=== PATIENT | male | born 1950 | race Caucasian/White ===

== ENCOUNTER 2021-07-10 18:56 | Outpatient (REF) | payer MEDICARE, SELFPAY ==
[2021-07-10 14:53] LABS: Hemoglobin A1C 7.2 % (<5.7)
[2021-07-10 15:27] LABS: ALT 55 U/L (16-63); AST 26 U/L (15-37); Alkaline Phosphatase 124 U/L (46-116); Anion Gap 7.8 mmol/L (3-11); BUN 19 mg/dL (7-18); Bilirubin, Total 0.5 mg/dL (0.2-1.0); CO2 27.2 mmol/L (21.0-32.0); CREATININE 1.2 mg/dL (0.70-1.30); Calcium 9.2 mg/dL (8.5-10.1); Calculated LDL 76 mg/dL (<100); Chloride 106 mmol/L (98-107); Cholesterol 127 mg/dL (<200); Glucose 193 mg/dL (74-106); HDL Cholesterol 41 mg/dL (40-60); Potassium 5.4 mmol/L (3.5-5.1); Sodium 141 mmol/L (136-145); Total Protein 7.4 g/dL (6.4-8.2); Triglyceride 50 mg/dL (<150)
== END 2021-07-10 18:57 | disposition home or self-care (01) ==
LOC: NCHCN 18:56
PROVIDERS: Visit Provider Nurse Practitioner Family
DX: I10 Essential (primary) hypertension (principal); E11.9 Type 2 diabetes mellitus without complications
CPT/HCPCS: 80053; 80061; 83036

== ENCOUNTER 2022-01-22 17:43 | Outpatient (REF) | payer MEDICARE, SELFPAY ==
[2022-01-21 22:52] LABS: COMMENT (LAB VIEW ONLY) 142.65 mg/dL
[2022-01-22 19:49] LABS: PSA, Screening 34.5 ng/mL (<=4.5)
== END 2022-01-22 17:44 | disposition home or self-care (01) ==
LOC: NCHCN 17:43
PROVIDERS: Visit Provider Nurse Practitioner Family
DX: E11.9 Type 2 diabetes mellitus without complications (principal); Z12.5 Encounter for screening for malignant neoplasm of prostate
CPT/HCPCS: 84153; 82043; 82570

== ENCOUNTER 2022-08-26 15:39 | Outpatient (REF) | payer MEDICARE, SELFPAY ==
[2022-08-27 18:56] LABS: PSA, Diagnostic <0.1 ng/mL (<=4.5)
== END 2022-08-26 15:40 | disposition home or self-care (01) ==
LOC: LBN 15:39
PROVIDERS: Visit Provider Radiology Radiation Oncology
DX: C61 Malignant neoplasm of prostate (principal)
CPT/HCPCS: 84153; 84154

== ENCOUNTER 2022-11-24 17:04 | Outpatient (REF) | payer MEDICARE, SELFPAY ==
[2022-11-24 20:56] LABS: ALT 30 U/L (16-63); AST 22 U/L (15-37); Alkaline Phosphatase 99 U/L (46-116); Anion Gap 10.7 mmol/L (3-11); BUN 30 mg/dL (7-18); Bilirubin, Total 0.5 mg/dL (0.2-1.0); CO2 25.3 mmol/L (21.0-32.0); CREATININE 1.5 mg/dL (0.70-1.30); Calcium 9.4 mg/dL (8.5-10.1); Calculated LDL 71 mg/dL (<100); Chloride 103 mmol/L (98-107); Cholesterol 135 mg/dL (<200); Estimated GFR 49.77 (mL/min/1.73m2); Glucose 154 mg/dL (74-106); HDL Cholesterol 44 mg/dL (40-60); Potassium 5.2 mmol/L (3.5-5.1); Sodium 139 mmol/L (136-145); Total Protein 7.6 g/dL (6.4-8.2); Triglyceride 100 mg/dL (<150)
[2022-11-24 21:05] LABS: COMMENT (LAB VIEW ONLY) 180.03 mg/dL; Microalb ug/mg Crea 12.6 ug/mg Cr
[2022-11-25 18:28] LABS: PSA, Diagnostic <0.1 ng/mL (<=6.5)
== END 2022-11-24 17:05 | disposition home or self-care (01) ==
LOC: NCHCN 17:04
PROVIDERS: Visit Provider Nurse Practitioner Family
DX: E11.9 Type 2 diabetes mellitus without complications (principal); C61 Malignant neoplasm of prostate; Z95.1 Presence of aortocoronary bypass graft; I10 Essential (primary) hypertension
CPT/HCPCS: 80053; 80061; 82043; 82570; 84153

== ENCOUNTER 2023-05-04 08:10 | Outpatient (REF) | payer MEDICARE, SELFPAY ==
[2023-05-04 23:13] LABS: PSA, Diagnostic <0.1 ng/mL (<=6.5)
== END 2023-05-04 08:11 | disposition home or self-care (01) ==
LOC: LBN 08:10
PROVIDERS: Visit Provider Radiology Radiation Oncology
DX: C61 Malignant neoplasm of prostate (principal)
CPT/HCPCS: 84153

== ENCOUNTER 2023-05-10 16:58 | Outpatient (REF) | payer MEDICARE, SELFPAY ==
[2023-05-10 16:15] LABS: HCT 35.6 % (40.0-50.0); HGB 11.8 g/dL (13.5-17.5); MCH 28.6 pg (27.0-33.0); MCHC 33.1 % (32.0-36.0); MCV 86 fL (80-95); MPV 10.3 fL (8.0-11.0); Platelet Count 231 10^3/uL (130-400); RBC 4.13 10^6/uL (4.36-5.78); RDW 13.1 % (11.8-14.1); RDW-SD 40.6 fL; WBC 7.86 10^3/uL (4.4-10.8)
[2023-05-10 16:53] LABS: ALT 27 U/L (16-63); AST 18 U/L (15-37); Albumin 3.8 g/dL (3.4-5.0); Alkaline Phosphatase 110 U/L (46-116); Anion Gap 7.6 mmol/L (3-11); BUN 28 mg/dL (7-18); Bilirubin, Total 0.4 mg/dL (0.2-1.0); CO2 24.4 mmol/L (21.0-32.0); CREATININE 1.1 mg/dL (0.70-1.30); Calcium 9.6 mg/dL (8.5-10.1); Chloride 104 mmol/L (98-107); Estimated GFR 72.22 (mL/min/1.73m2); Glucose 190 mg/dL (74-106); Magnesium 1.6 mg/dL (1.8-2.4); Potassium 5.3 mmol/L (3.5-5.1); Sodium 136 mmol/L (136-145); TSH (W/Ref FT4) 2.92 uIU/mL (0.36-3.74); Total Protein 7.8 g/dL (6.4-8.2); Vitamin B12 298 pg/mL (193-986)
== END 2023-05-10 16:59 | disposition home or self-care (01) ==
LOC: NCHCN 16:58
PROVIDERS: Visit Provider Nurse Practitioner Family
DX: E11.3293 Type 2 diabetes mellitus with mild nonproliferative diabetic retinopathy without macular edema, bilateral (principal); I25.10 Atherosclerotic heart disease of native coronary artery without angina pectoris; R42 Dizziness and giddiness; Z95.2 Presence of prosthetic heart valve
CPT/HCPCS: 80053; 85027; 82607; 83735; 84443

== ENCOUNTER 2023-05-20 10:12 | Outpatient (REF) | payer MEDICARE, SELFPAY ==
[2023-05-20 14:57] LABS: HCT 38.2 % (40.0-50.0); HGB 12.2 g/dL (13.5-17.5); MCH 27.9 pg (27.0-33.0); MCHC 31.9 % (32.0-36.0); MCV 87 fL (80-95); MPV 9.4 fL (8.0-11.0); Platelet Count 251 10^3/uL (130-400); RBC 4.38 10^6/uL (4.36-5.78); RDW 13.5 % (11.8-14.1); RDW-SD 42.8 fL; Reticulocyte 2.1 % (0.5-2.4); WBC 7.37 10^3/uL (4.4-10.8)
[2023-05-20 15:45] LABS: Iron 67 ug/dL (65-175)
[2023-05-20 16:00] LABS: Anion Gap 11.1 mmol/L (3-11); BUN 27 mg/dL (7-18); CO2 23.9 mmol/L (21.0-32.0); CREATININE 1.2 mg/dL (0.70-1.30); Calcium 9.4 mg/dL (8.5-10.1); Chloride 106 mmol/L (98-107); Estimated GFR 65.06 (mL/min/1.73m2); Ferritin 446 ng/mL (26-388); Folate 11.1 ng/mL (8.6-20.0); Glucose 209 mg/dL (74-106); Magnesium 1.9 mg/dL (1.8-2.4); Potassium 4.3 mmol/L (3.5-5.1); Sodium 141 mmol/L (136-145)
[2023-05-21 09:00] LABS: Transferrin 235 mg/dL (201-352)
== END 2023-05-20 10:13 | disposition home or self-care (01) ==
LOC: NCHCN 10:12
PROVIDERS: Visit Provider Nurse Practitioner Family
DX: D64.9 Anemia, unspecified (principal)
CPT/HCPCS: 80048; 85027; 85045; 82728; 82746; 83540; 83735; 84466

== ENCOUNTER 2023-06-24 12:55 | Outpatient (REF) | payer MEDICARE, SELFPAY ==
--- OUTSIDE RECORDS SUMMARY | 2023-06-24 13:00 | XMS_ITS | CCD ---
Author Name Unknown Address [address] [place] [address] [phone] Organization Unknown Address [address] [place] [address] [phone] Care Team Providers Care Laundry Sorter Name Role Phone JENNA BOB Attending Physician [phone] JENNA BOB Rounding (Secondary) Physic salvador [phone] Vital Signs Unknown or Not Available. Allergies Allergy Code Allergy Type Reaction Status No Known Drug Allergies 0 No known drug allergies Active Procedures Unknown or Not Available. History of Immunizations Immunization Code Date Tdap 115 12/26/2022 Problems Unknown or Not Available. Results Unknown or Not Available. Active Medications Medication Code Dose Units Frequency Route Modificatio n Start Date/Time Finasteride 5MG Oral Tablet [id number] 1 TABLET DAILY ORAL 05/15/20 23 23:47 Prescription Detail TAKE 1 TABLET ORAL DAILY Medications Administered During Visit Unknown or Not Available. Encounters Encounter Diagnosis Diagnosis Code Start Date Postprocedural state finding [id number] Social History Smoking Status Code Start Date End Date Former smoker [id number] 10/24/1989 Patient Decision Aids Unknown or Not Available. Discharge Instructions You were admitted to [facility] on 04/13/2022 11:41 with a principal diagnosis of Other specified postprocedural states You were discharged from [facility] on 04/13/2022 00:00 Should you have any questions prior to discharge, please contact a member of your healthcare team. If you have left the hospital and have any questions, please contact your primary care physician. Chief Complaint and Reason For Visit Unknown or Not Available. Function Status Unknown or Not Available. Plan of Care Unknown or Not Available. Referral/Transition of Care Unknown or Not Available.
--- OUTSIDE RECORDS SUMMARY | 2023-06-24 13:00 | XMS_ITS | CCD ---
Author Name Unknown Address [address] [place] [address] [phone] Organization Unknown Address [address] [place] [address] [phone] Care Team Providers Care Needle Loom Operator Name Role Phone JEANNE ALDRIDGE Attending Physician [phone] Vital Signs Unknown or Not Available. Allergies Allergy Code Allergy Type Reaction Status No Known Drug Allergies 0 No known drug allergies Active Procedures Unknown or Not Available. History of Immunizations Immunization Code Date Tdap 115 12/26/2022 Problems Unknown or Not Available. Results Unknown or Not Available. Active Medications Medication Code Dose Units Frequency Route Modificatio n Start Date/Time Finasteride 5MG Oral Tablet [id number] 1 TABLET DAILY ORAL 05/15/20 23 23:47 Prescription Detail TAKE 1 TABLET ORAL DAILY Medications Administered During Visit Unknown or Not Available. Encounters Encounter Diagnosis Diagnosis Code Start Date Encounter for other specified aftercare Z5189 04/14/2022 Social History Smoking Status Code Start Date End Date Former smoker [id number] 10/24/1989 Patient Decision Aids Unknown or Not Available. Discharge Instructions You were admitted to [facility] on 04/14/2022 09:30 with a principal diagnosis of Encounter for other specified aftercare You were discharged from [facility] on 04/14/2022 08:51 Should you have any questions prior to [...]
--- OUTSIDE RECORDS SUMMARY | 2023-06-24 13:00 | XMS_ITS | CCD ---
Author Name Unknown Address [address] [place] [address] [phone] Organization Unknown Address [address] [place] [address] [phone] Care Team Providers Care Sap Plant Maintenance Consultant Name Role Phone GENO BAKER Attending Physician [phone] Vital Signs Unknown or Not Available. Allergies Allergy Code Allergy Type Reaction Status No Known Drug Allergies 0 No known drug allergies Active Procedures Unknown or Not Available. History of Immunizations Immunization Code Date Tdap 115 12/26/2022 Problems Unknown or Not Available. Results Unknown or Not Available. Active Medications Medications Administered During Visit Unknown or Not Available. Encounters Encounter Diagnosis Diagnosis Code Start Date Encounter for other specified prophylactic measu res Z298 02/23/2022 Social History Smoking Status Code Start Date End Date Former smoker [id number] 10/24/1989 Patient Decision Aids Unknown or Not Available. Discharge Instructions You were admitted to [facility] on 02/23/2022 18:59 with a principal diagnosis of Encounter for other specified prophylactic measures You were discharged from [facility] on 02/23/2022 18:59 Should you have any questions prior to [...]
--- OUTSIDE RECORDS SUMMARY | 2023-06-24 13:00 | XMS_ITS | CCD ---
Author Name Unknown Address [address] [place] [address] [id number] Organization Unknown Address [address] [place] [address] [phone] Care Team Providers Care Salesperson Hosiery Name Role Phone COLIN FRAUSTO Attending Physician [phone] ARI COPE Er Physician 3 [phone] Vital Signs Vital Sign Value Unit Date/Time Recent/Initial ? BMI (Body Mass Index) 29.21 kg/m^2 01/01/2023 16: 51 Initial VS Weight Measured 240 lbs 01/01/2023 16:51 Ini tial VS Height 76 in 01/01/2023 16:51 Initial VS BSA (Body Surface Area) 2.42 m^2 01/01/2023 1 6:51 Initial VS BP Systolic 100 mmHg 01/01/2023 16:51 Initial VS BP Diastolic 64 mmHg 01/01/2023 16:51 Initia l VS O2 % BldC Oximetry 100 % 01/01/2023 16:51 Initial VS Body Temperature 36.1 degrees 01/01/2023 16:51 In itial VS Allergies Allergy Code Allergy Type Reaction Status No Known Drug Allergies 0 No known drug allergies Active Procedures Unknown or Not Available. History of Immunizations Immunization Code Date Tdap 115 12/26/2022 Problems Unknown or Not Available. Results Unknown or Not Available. Active Medications Unknown or Not Available. Medications Administered During Visit Unknown or Not Available. Encounters Encounter Diagnosis Diagnosis Code Start Date Laceration without foreign b betsy of right ear, subsequent encounter [id number] 01/01/2023 Social History Smoking Status Code Start Date End Date Former smoker [id number] 10/24/1989 Patient Decision Aids Unknown or Not Available. Discharge Instructions You were admitted to [facility] on 01/01/2023 16:39 with a principal diagnosis of Laceration without foreign body of right ear, subsequent encounter You were discharged from [facility] on 01/01/2023 17:22 Should you have any questions prior to discharge, please contact a member of your healthcare team. If you have left the hospital and have any questions, please contact your primary care physician. Chief Complaint and Reason For Visit Chief Complaint Date of Onset STITCHE REMOVAL 01/04/2023 Function Status Unknown or Not Available. Plan of Care Unknown or Not Available. Referral/Transition of Care Unknown or Not Available.
--- OUTSIDE RECORDS SUMMARY | 2023-06-24 13:00 | XMS_ITS | CCD ---
Author Name Unknown Address [address] [place] [address] [id number] Organization Unknown Address [address] [place] [address] [phone] Care Team Providers Care Bookmaker'S Clerk Name Role Phone KARLI GRAY Attending Physician [phone] KARLI GRAY Rounding (Secondary) Physicia n [phone] Vital Signs Unknown or Not Available. Allergies Allergy Code Allergy Type Reaction Status No Known Drug Allergies 0 No known drug allergies Active Procedures Unknown or Not Available. History of Immunizations Immunization Code Date Tdap 115 12/26/2022 Problems Unknown or Not Available. Results Unknown or Not Available. Active Medications Medication Code Dose Units Frequency Route Modificatio n Start Date/Time Finasteride 5MG Oral Tablet 499810 1 TABLET DAILY ORAL 05/15/20 23 23:47 Prescription Detail TAKE 1 TABLET ORAL DAILY Medications Administered During Visit Unknown or Not Available. Encounters Encounter Diagnosis Diagnosis Code Start Date Plantar fascial fibromatosis [id number] 11/2022 Social History Smoking Status Code Start Date End Date Former smoker [id number] 10/24/1989 Patient Decision Aids Unknown or Not Available. Discharge Instructions You were admitted to [facility] on 03/30/2023 14:46 with a principal diagnosis of Plantar fascial fibromatosis You were discharged from [facility] on 03/30/2023 00:00 Should you have any questions prior [...]
--- OUTSIDE RECORDS SUMMARY | 2023-06-24 13:00 | XMS_ITS | CCD ---
Author Name Unknown Address [address] [place] [address] [phone] Organization Unknown Address [address] [place] [address] [phone] Care Team Providers Care Appraisal Specialist Name Role Phone JEANNE ALDRIDGE Attending Physician [phone] Vital Signs Unknown or Not Available. Allergies Allergy Code Allergy Type Reaction Status No Known Drug Allergies 0 No known drug allergies Active Procedures Unknown or Not Available. History of Immunizations Immunization Code Date Tdap 115 12/26/2022 Problems Unknown or Not Available. Results Unknown or Not Available. Active Medications Medication Code Dose Units Frequency Route Modificatio n Start Date/Time Finasteride 5MG Oral Tablet 334607 1 TABLET DAILY ORAL 05/15/20 23:47 Prescription Detail TAKE 1 TABLET ORAL DAILY Medications Administered During Visit Unknown or Not Available. Encounters Encounter Diagnosis Diagnosis Code Start Date Encounter for other specified aftercare Z5189 07/30/2022 Social History Smoking Status Code Start Date End Date Former smoker [id number] 10/24/1989 Patient Decision Aids Unknown or Not Available. Discharge Instructions You were admitted to [facility] on 07/30/2022 15:02 with a principal diagnosis of Encounter for other specified aftercare You were discharged from [facility] on 07/30/2022 11:44 Should you have any questions prior to [...]
--- OUTSIDE RECORDS SUMMARY | 2023-06-24 13:00 | XMS_ITS | Patient Health Record ---
Author Name Unknown Organization [facility] Address [address] [place] [address] Care Team Providers Care Interior Design Professor Name Role Phone Mason Kiran Primary Care Provider Sil Prescott Unavailable [phone] ALLERGIES Allergen (clinical drug ingredient) Drug/Non Drug Allergy documented on EMR Reaction Allergy Type Onset Date Status atorvastatin Atorvastatin Unknown Drug Allergy 02/02/2022 Active REASON FOR REFERRAL No Information MEDICATIONS Medication SIG (Take, Route, Frequency, Duration) Notes Start Date End Date Status Cilostazol 100 MG 1 tablet 30 minutes before or 2 hours after breakfast and dinner Orally Twice a day for 30 day(s) Active Metoprolol Tartrate 50 MG 1 tablet with food Orally Twice a day for 30 day(s) Active Lisinopril 10 MG 1 tablet Orally Once a day for 30 day(s) Active Aspir-81 Active metFORMIN HCl 500 MG 1 tablet with a jane l Orally Once a day for 30 day(s) Active Jardiance 25 MG 1 tablet Orally Once a day for 30 day(s) Active Rosuvastatin Calcium 10 MG 1 tablet Oral ly Once a day for 30 day(s) Active Flomax 0.4 MG 1 capsule Orally Onc e a day for 30 day(s) Active IMMUNIZATIONS Vaccine Route Administration Date Status Comme nts Covid19 Unknown 10/19/2020 Administered Covid19 Unknown 11/16/2020 Administered Covid19 Unknown 07/10/2021 Administered Influenza, high dose seasonal Unknown 07/10/2021 Admini stered Pneumococcal polysaccharide PPV23 Unknown 04/27/2019 Ad ministered SOCIAL HISTORY Tobacco Use: Social History Observation Description Date Details (start date - stop date) Former Smoker NA - NA Sex Assigned At : Social History Observation Description Sex Assigned At Unknown Tobacco Use/Smoking: Question Answer Notes Are you a former smoker PROBLEMS Problem Type ICD Code Onset Dates Problem Status W/U Status Risk SNOMED Code Notes Problem Malignant neoplasm o f prostate (C61) Active confirmed Malignant jasmyne or of prostate ([id number]) Problem Type 2 diabetes mellitus without complications (E11.9) Active confirmed Type 2 diabetes mellitus without complication (342416258) Problem Essential (primary) hypertension (I10) Active confirmed Benign hy pertension (74139163) Problem Familial hypercholesterolemia (E78.01) Active confirmed Familial hypercholesterolemia (761011317) Problem Benign prostatic hyperplasia with lower urinary tract symptoms (N40.1) Active confirmed Lower urina ry tract symptoms due to benign prostatic hypertrophy (74662166124725) Problem Elevated prostate specific antigen [PSA] (R97.20) Active confirmed Raised prosta te specific antigen (682834822) VITAL SIGNS Height 74 in 06/01/2023 Weight 250 lbs 06/01/2023 BMI 32.09 kg/m2 06/01/2023 Encounters Encounter Location Date Provider Diagnosis [facility] [address] [address] 09/16/2022 [facility] [address] [address] 05/27/2023 [facility] [address] [address] 06/01/2023 Sil [facility] Malignant neoplasm o f prostate C61 and Benign prostatic hyperplasia with lower urinary tract symptoms N40.1 [facility] [address] [address] 06/01/2023 Sil [facility] ASSESSMENTS Encounter Date Diagnosis Assessment Notes Treatment Notes Treatment Clinical Notes 06/01/2023 Malignant neoplasm of prostate (ICD-10 - C61) 06/01/2023 Benign prostatic hyperplasia with lower urinary tract symptoms (ICD-10 - N40.1) PLAN OF TREATMENT Next Appt Details Provider Name:Sil morales, 07/15/2023 11:00:00 AM, [address] [place] [address], [id number], Insurance Providers Payer Name Payer Address Payer Phone Subscriber Number Group Number Insured Name Patient Relationship to Insured Coverage Start Date Coverage End Date Medicare of [place] - J14 [address] [place] [phone] [id number] PATTY ROBERTS Self - patient is the insured [facility] Medicare Supplement/ Fixed Indemnity [address] [place] [address] [id number] PATTY ROBERTS Self - patient is the insured MEDICAL (GENERAL) HISTORY Medical History History ICD Code Dupuytren's Contracture CAD Peripheral Vascular Disease Aortic Stenosis Hyperkalemia R Lower Lobe Pulmonary Nodule Diverticulitis radha 8 prostate cancer diagnosed 03/14 22 Surgical History Surgery Date(Month/Year) Coronary Artery Bypass Prostate Biopsy - [place] 8 02/2022
--- OUTSIDE RECORDS SUMMARY | 2023-06-24 13:00 | XMS_ITS | CCD ---
Author Name Unknown Address [address] [place] [address] [id number] Organization Unknown Address [address] [place] [address] [phone] Care Team Providers Care Bindery Assistant Name Role Phone GABRIELLA MCGINNIS Attending Physician [phone] GABRIELLA MCGINNIS Er Physician 3 [phone] CHANO Lamb Registered Nurse [phone] JOAN Samaniego Registered Nurse [phone] Vital Signs Vital Sign Value Unit Date/Time Recent/Initial ? BMI (Body Mass Index) 28.85 kg/m^2 12/26/2022 14: 33 Initial VS Weight Measured 237 lbs 12/26/2022 14:33 Ini tial VS Height 76 in 12/26/2022 14:33 Initial VS BSA (Body Surface Area) 2.4 m^2 12/26/2022 1 4:33 Initial VS BP Systolic 128 mmHg 12/26/2022 14:33 Initial VS BP Diastolic 55 mmHg 12/26/2022 14:33 Initia l VS Respiratory Rate 18 bpm 12/26/2022 14:33 In itial VS Heart Rate 78 bpm 12/26/2022 14:33 Initial VS O2 % BldC Oximetry 98 % 12/26/2022 14:33 Initial VS Body Temperature 36.4 degrees 12/26/2022 14:33 In itial VS BP Systolic 150 mmHg 12/26/2022 18:40 Most Re cent VS BP Diastolic 78 mmHg 12/26/2022 18:40 Most R ecent VS Respiratory Rate 16 bpm 12/26/2022 18:[address] Recent VS Heart Rate 98 bpm 12/26/2022 18:40 Most Rec ent VS O2 % BldC Oximetry 99 % 12/26/2022 18:40 Most Recent VS Body Temperature 36.3 degrees 12/26/2022 18:[address] Recent VS Allergies Allergy Code Allergy Type Reaction Status No Known Drug Allergies 0 No known drug allergies Active Procedures Unknown or Not Available. History of Immunizations Immunization Code Date Tdap 115 12/26/2022 Problems Unknown or Not Available. Results Unknown or Not Available. Active Medications Medications Administered During Visit Medication Dose Units Frequency Route Date/Time of Last Dose TETANUS/DIPHT/PERTUS SYR:0.5ML(BOOSTRIX) 0.5 ML X1 IM 12/27/19 23 18:15 Encounters Encounter Diagnosis Diagnosis Code Start Date Laceration without foreign b betsy of right ear, initial encounter [id number] 12/26/2022 Social History Smoking Status Code Start Date End Date Former smoker [id number] 10/24/1989 Patient Decision Aids Unknown or Not Available. Discharge Instructions You were admitted to [facility] on 12/26/2022 14:08 with a principal diagnosis of Laceration without foreign body of right ear, initial encounter You were discharged from [facility] on 12/26/2022 18:51 Should you have any questions prior to discharge, please contact a member of your healthcare team. If you have left the hospital and have any questions, please contact your primary care physician. Chief Complaint and Reason For Visit Chief Complaint Date of Onset RIGHT EAR LACERATION Function Status Unknown or Not Available. Plan of Care Unknown or Not Available. Referral/Transition of Care Unknown or Not Available.
--- OUTSIDE RECORDS SUMMARY | 2023-06-24 13:01 | XMS_ITS | CCD ---
Author Name Unknown Address [address] [place] [address] [phone] Organization Unknown Address [address] [place] [address] [phone] Care Team Providers Care Automotive Service Management Teacher Name Role Phone HAYDEE MCDONALD Attending Physician [phone] Vital Signs Unknown or Not Available. Allergies Allergy Code Allergy Type Reaction Status No Known Drug Allergies 0 No known drug allergies Active Procedures Unknown or Not Available. History of Immunizations Immunization Code Date Tdap 115 12/26/2022 Problems Unknown or Not Available. Results Unknown or Not Available. Active Medications Medication Code Dose Units Frequency Route Modificatio n Start Date/Time Finasteride 5MG Oral Tablet 422725 1 TABLET DAILY ORAL 05/15/20 23 23:47 Prescription Detail TAKE 1 TABLET ORAL DAILY Medications Administered During Visit Unknown or Not Available. Encounters Unknown or Not Available. Social History Smoking Status Code Start Date End Date Former smoker 1855460 10/24/1989 Patient Decision Aids Unknown or Not Available. Discharge Instructions You were admitted to [facility] on 02/23/2022 14:16 You were discharged from [facility] on 02/23/2022 14:16 Should you have any questions prior to discharge, please contact a member of your healthcare team. If you have left the hospital and have any questions, please contact your primary care physician. Chief Complaint and Reason For Visit Chief Complaint Date of Onset ELEVATED PSA Function Status Unknown or Not Available. Plan of Care Unknown or Not Available. Referral/Transition of Care Unknown or Not Available.
--- OUTSIDE RECORDS SUMMARY | 2023-06-24 13:01 | XMS_ITS | CCD ---
Author Name Unknown Address [address] [place] [address] [phone] Organization Unknown Address [address] [place] [address] [phone] Care Team Providers Care Neon Sign Erector Name Role Phone JENNA BOB Attending Physician [phone] JENNA BOB Rounding (Secondary) Physic salvador [phone] Vital Signs Unknown or Not Available. Allergies Allergy Code Allergy Type Reaction Status No Known Drug Allergies 0 No known drug allergies Active Procedures Unknown or Not Available. History of Immunizations Immunization Code Date Tdap 115 12/26/2022 Problems Unknown or Not Available. Results Unknown or Not Available. Active Medications Medication Code Dose Units Frequency Route Modificatio n Start Date/Time Finasteride 5MG Oral Tablet 011800 1 TABLET DAILY ORAL 05/15/20 23 23:47 Prescription Detail TAKE 1 TABLET ORAL DAILY Medications Administered During Visit Unknown or Not Available. Encounters Encounter Diagnosis Diagnosis Code Start Date Follow-up orthopedic assessment [id number] 01/13/2022 Social History Smoking Status Code Start Date End Date Former smoker 0642962 10/24/1989 Patient Decision Aids Unknown or Not Available. Discharge Instructions You were admitted to [facility] on 01/13/2022 11:18 with a principal diagnosis of Encounter for other orthopedic aftercare You were discharged from [facility] on 01/13/2022 00:00 Should you have any questions prior [...]
--- OUTSIDE RECORDS SUMMARY | 2023-06-24 13:01 | XMS_ITS | CCD ---
Author Name Unknown Address [address] [place] [address] [phone] Organization Unknown Address [address] [place] [address] [phone] Care Team Providers Care Production Reproduction Manager Name Role Phone JENNA BOB Attending Physician [phone] JENNA BOB Rounding (Secondary) Physic salvador [phone] Vital Signs Unknown or Not Available. Allergies Allergy Code Allergy Type Reaction Status No Known Drug Allergies 0 No known drug allergies Active Procedures Unknown or Not Available. History of Immunizations Immunization Code Date Tdap 115 12/26/2022 Problems Unknown or Not Available. Results Unknown or Not Available. Active Medications Medication Code Dose Units Frequency Route Modificatio n Start Date/Time Finasteride 5MG Oral Tablet 758940 1 TABLET DAILY ORAL 05/15/20 23 23:47 Prescription Detail TAKE 1 TABLET ORAL DAILY Medications Administered During Visit Unknown or Not Available. Encounters Encounter Diagnosis Diagnosis Code Start Date Malignant neoplasm of prostate C61 0 02/23/2022 Social History Smoking Status Code Start Date End Date Former smoker [id number] 10/24/1989 Patient Decision Aids Unknown or Not Available. Discharge Instructions You were admitted to [facility] on 02/23/2022 00:00 with a principal diagnosis of Malignant neoplasm of prostate You were discharged from [facility] on 02/23/2022 00:00 Should you have any questions prior [...]
--- OUTSIDE RECORDS SUMMARY | 2023-06-24 13:01 | XMS_ITS | CCD ---
Author Name Unknown Address [address] [place] [address] [phone] Organization Unknown Address [address] [place] [address] [phone] Care Team Providers Care Laundry Routeman Name Role Phone HAYDEE MCDONALD Attending Physician [phone] Vital Signs Unknown or Not Available. Allergies Allergy Code Allergy Type Reaction Status No Known Drug Allergies 0 No known drug allergies Active Procedures Unknown or Not Available. History of Immunizations Immunization Code Date Tdap 115 12/26/2022 Problems Unknown or Not Available. Results PSA DIAG PROSTATE SPECIFIC A NTIGEN * - Collect Date/Time: 02/04/2022 16:34 Test Name Code Test Result Test Units Test Ref Rang e PSA 2857-1 41.74 ng/mL L=0.00 H=4.50 Active Medications Medication Code Dose Units Frequency Route Modificatio n Start Date/Time Finasteride 5MG Oral Tablet 270531 1 TABLET DAILY ORAL 05/15/20 23 23:47 Prescription Detail TAKE 1 TABLET ORAL DAILY Medications Administered During Visit Unknown or Not Available. Encounters Encounter Diagnosis Diagnosis Code Start Date Raised prostate specific antigen [id number] 02/04/2022 Social History Smoking Status Code Start Date End Date Former smoker [id number] 10/24/1989 Patient Decision Aids Unknown or Not Available. Discharge Instructions You were admitted to [facility] on 02/04/2022 16:28 with a principal diagnosis of Elevated prostate specific antigen [PSA] You had the following tests done:PSA DIAG PROSTATE SPECIFIC ANTIGEN * You were discharged from [facility] on 02/04/2022 16:28 Should you have any questions prior to [...]
--- OUTSIDE RECORDS SUMMARY | 2023-06-24 13:01 | XMS_ITS | CCD ---
Author Name Unknown Address [address] [place] [address] [phone] Organization Unknown Address [address] [place] [address] [phone] Care Team Providers Care Stop Attacher Name Role Phone JENNA BOB Attending Physician [phone] Vital Signs Unknown or Not Available. Allergies Allergy Code Allergy Type Reaction Status No Known Drug Allergies 0 No known drug allergies Active Procedures Unknown or Not Available. History of Immunizations Immunization Code Date Tdap 115 12/26/2022 Problems Unknown or Not Available. Results Unknown or Not Available. Active Medications Medication Code Dose Units Frequency Route Modificatio n Start Date/Time Finasteride 5MG Oral Tablet 790912 1 TABLET DAILY ORAL 05/15/20 23:47 Prescription Detail TAKE 1 TABLET ORAL DAILY Medications Administered During Visit Unknown or Not Available. Encounters Encounter Diagnosis Diagnosis Code Start Date Canceled operative procedure [id number] 02/2022 Social History Smoking Status Code Start Date End Date Former smoker [id number] 10/24/1989 Patient Decision Aids Unknown or Not Available. Discharge Instructions You were admitted to [facility] on 01/30/2022 16:42 with a principal diagnosis of Procedure and treatment not carried out, unspecified reason You were discharged from [facility] on 01/30/2022 16:42 Should you have any questions prior to [...]
--- OUTSIDE RECORDS SUMMARY | 2023-06-24 13:01 | XMS_ITS | CCD ---
Author Name Unknown Address [address] [place] [address] [phone] Organization Unknown Address [address] [place] [address] [phone] Care Team Providers Care Delimer Name Role Phone JENNA BOB Attending Physician [phone] Vital Signs Unknown or Not Available. Allergies Allergy Code Allergy Type Reaction Status No Known Drug Allergies 0 No known drug allergies Active Procedures Unknown or Not Available. History of Immunizations Immunization Code Date Tdap 115 12/26/2022 Problems Unknown or Not Available. Results [facility]* - Curt ect Date/Time: 12/27/2021 10:33 Test Name Code Test Result Test Units Test Ref Rang e Tier- 02837-9 PRE-OP N/A SARS COV2 RNA: 01895-2 NEGATIVE N/A REFERENCE RANGE: NEGAT Active Medications Medication Code Dose Units Frequency Route Modificatio n Start Date/Time Finasteride 5MG Oral Tablet 379983 1 TABLET DAILY ORAL 05/15/20 23 23:47 Prescription Detail TAKE 1 TABLET ORAL DAILY Medications Administered During Visit Unknown or Not Available. Encounters Encounter Diagnosis Diagnosis Code Start Date Pre-surgery testing [id number] 12/27/2021 Social History Smoking Status Code Start Date End Date Former smoker [id number] 10/24/1989 Patient Decision Aids Unknown or Not Available. Discharge Instructions You were admitted to [facility] on 12/27/2021 21:02 with a principal diagnosis of Encounter for preprocedural laboratory examination You had the following tests done:DESTINEY HOFFMANN XIANGGABINO* You were discharged from [facility] on 12/27/2021 21:02 Should you have any questions prior to [...]
--- OUTSIDE RECORDS SUMMARY | 2023-06-24 13:01 | XMS_ITS | CCD ---
Author Name Unknown Address [address] [place] [address] [phone] Organization Unknown Address [address] [place] [address] [phone] Care Team Providers Care Screen Machine Operator Name Role Phone JENNA BOB Attending Physician [phone] JENNA BOB Rounding (Secondary) Physic salvador [phone] Vital Signs Unknown or Not Available. Allergies Allergy Code Allergy Type Reaction Status No Known Drug Allergies 0 No known drug allergies Active Procedures Unknown or Not Available. History of Immunizations Immunization Code Date Tdap 115 12/26/2022 Problems Unknown or Not Available. Results Unknown or Not Available. Active Medications Medication Code Dose Units Frequency Route Modificatio n Start Date/Time Finasteride 5MG Oral Tablet 556590 1 TABLET DAILY ORAL 05/15/20 23 23:47 Prescription Detail TAKE 1 TABLET ORAL DAILY Medications Administered During Visit Unknown or Not Available. Encounters Encounter Diagnosis Diagnosis Code Start Date Removal of suture 53250176 01/07/2022 Social History Smoking Status Code Start Date End Date Former smoker [id number] 10/24/1989 Patient Decision Aids Unknown or Not Available. Discharge Instructions You were admitted to [facility] on 01/07/2022 14:42 with a principal diagnosis of Encounter for removal of sutures You were discharged from [facility] on 01/07/2022 00:00 Should you have any questions prior [...]
--- OUTSIDE RECORDS SUMMARY | 2023-06-24 13:02 | XMS_ITS | CCD ---
Author Name Unknown Address [address] [place] [address] [id number] Organization Unknown Address [address] [place] [address] [phone] Care Team Providers Care Camera Person Name Role Phone JENNA BOB Attending Physician [phone] Vital Signs Unknown or Not Available. Allergies Allergy Code Allergy Type Reaction Status No Known Drug Allergies 0 No known drug allergies Active Procedures Unknown or Not Available. History of Immunizations Immunization Code Date Tdap 115 12/26/2022 Problems Unknown or Not Available. Results Unknown or Not Available. Active Medications Medication Code Dose Units Frequency Route Modificatio n Start Date/Time Finasteride 5MG Oral Tablet 894934 1 TABLET DAILY ORAL 05/15/20 23:47 Prescription Detail TAKE 1 TABLET ORAL DAILY Medications Administered During Visit Unknown or Not Available. Encounters Encounter Diagnosis Diagnosis Code Start Date Encounter for other orthopedic aftercare Z4789 01/01/2022 Social History Smoking Status Code Start Date End Date Former smoker [id number] 10/24/1989 Patient Decision Aids Unknown or Not Available. Discharge Instructions You were admitted to [facility] on 01/01/2022 09:16 with a principal diagnosis of Encounter for other orthopedic aftercare You were discharged from [facility] on 04/13/2022 08:58 Should you have any questions prior to [...]
--- OUTSIDE RECORDS SUMMARY | 2023-06-24 13:02 | XMS_ITS | CCD ---
Author Name Unknown Address [address] [place] [address] [phone] Organization Unknown Address [address] [place] [address] [phone] Care Team Providers Care Surveying Or Spatial Science Technician Name Role Phone SHAWANDA POLANCO Attending Physician [phone] Vital Signs Unknown or Not Available. Allergies Allergy Code Allergy Type Reaction Status No Known Drug Allergies 0 No known drug allergies Active Procedures Procedure Code Procedure Type Date Open Treatment, Metacarpopha langeal Dislocation, Single, w/wo Int Fixation 26760 CPT 12/21/2021 History of Immunizations Immunization Code Date Tdap 115 12/26/2022 Problems Problem Code Start Date Resolved Date Status Diabetes 2 68159568 12/21/2021 Resolved History of aortic valve replacement 1840632805353 12/22/2021 Resolved Coronary arteriosclerosis 79079475 12/22/2021 Resolved Diabetes 2 03329713 12/22/2021 Resolved Gastroesophageal reflux 860188304 12/22/2021 R esolved Results Unknown or Not Available. Active Medications Medication Code Dose Units Frequency Route Modificatio n Start Date/Time Finasteride 5MG Oral Tablet 727338 1 TABLET DAILY ORAL 05/15/20 23 23:47 Prescription Detail TAKE 1 TABLET ORAL DAILY Medications Administered During Visit Unknown or Not Available. Encounters Encounter Diagnosis Diagnosis Code Start Date Dislocation of metacarpophal angeal joint of left thumb, initial encounter [id number] 12/21/2021 Social History Smoking Status Code Start Date End Date Former smoker [id number] 10/24/1989 Patient Decision Aids Unknown or Not Available. Discharge Instructions You were admitted to [facility] on 12/21/2021 01:07 with a principal diagnosis of Dislocation of metacarpophalangeal joint of left thumb, initial encounter You had the following procedures done:Open Treatment, Metacarpophalangeal Dislocation, Single, w/wo Int Fixation You were discharged from [facility] on 12/22/2021 01:09 Should you have any questions prior to [...]
--- OUTSIDE RECORDS SUMMARY | 2023-06-24 13:02 | XMS_ITS | CCD ---
Author Name Unknown Address [address] [place] [address] [phone] Organization Unknown Address [address] [place], [place] [phone] Care Team Providers Care Security Systems Integrator Name Role Phone SHAWANDA POLANCO Attending Physician [phone] TRISTON MAHER Er Physician [phone] JERE HERNDON (Secondary) Physician [phone] TITO Howadr Registered Nurse [phone] Vital Signs Vital Sign Value Unit Date/Time Recent/Initial ? BMI (Body Mass Index) 31.84 kg/m^2 12/21/2021 18: 20 Initial VS Weight Measured 248 lbs 12/21/2021 18:20 Ini tial VS Height 74 in 12/21/2021 18:20 Initial VS BSA (Body Surface Area) 2.42 m^2 12/21/2021 1 8:20 Initial VS BP Systolic 155 mmHg 12/21/2021 18:20 Initial VS BP Diastolic 72 mmHg 12/21/2021 18:20 Initia l VS Respiratory Rate 18 bpm 12/21/2021 18:20 In itial VS Heart Rate 65 bpm 12/21/2021 18:20 Initial VS O2 % BldC Oximetry 92 % 12/21/2021 18:20 Initial VS Body Temperature 37.1 degrees 12/21/2021 18:20 In itial VS BMI (Body Mass Index) 31.66 kg/m^2 12/22/2021 01: 37 Most Recent VS Weight Measured 246.6 lbs 12/22/2021 01:37 Mos t Recent VS Height 74 in 12/22/2021 01:37 Most Rec ent VS BSA (Body Surface Area) 2.42 m^2 12/22/2021 0 1:37 Most Recent VS BP Systolic 122 mmHg 12/22/2021 12:09 Most Re cent VS BP Diastolic 70 mmHg 12/22/2021 12:09 Most R ecent VS Respiratory Rate 17 bpm 12/22/2021 12:[address] Recent VS Heart Rate 65 bpm 12/22/2021 12:09 Most Rec ent VS O2 % BldC Oximetry 99 % 12/22/2021 12:09 Most Recent VS Body Temperature 36.1 degrees 12/22/2021 12:[address] Recent VS Allergies Allergy Code Allergy Type Reaction Status No Known Drug Allergies 0 No known drug allergies Active Procedures Procedure Code Procedure Type Date Reposition Right Finger Phal anx with External Fixation Device, Open Approach [id number] ICD-10 PCS Robotic Assisted Procedure o f Lower Extremity, Open Approach [id number] ICD-10 PCS 12/21/2021 Anesthesia, Open/Surg Arthro scopic/Endoscopic Proc, Distal Radius/Distal Ulna/Wrist/Hand; NOS 91039 CPT 12/21/2021 History of Immunizations Immunization Code Date Tdap 115 12/26/2022 Problems Problem Code Start Date Resolved Date Status History of aortic valve replacement 5303674636406 12/22/2021 Resolved Coronary arteriosclerosis 62275305 12/22/2021 Resolved Diabetes 2 21656888 12/22/2021 Resolved Gastroesophageal reflux 748031035 12/22/2021 R esolved Results COMPREHENSIVE METABOLIC PANE L (CMP) - Collect Date/Time: 12/21/2021 18:30 Test Name Code Test Result Test Units Test Ref Rang e GLUCOSE 2345-7 244 mg/dL L=70 H=116 BUN 3094-0 23 mg/dL L=6 H=25 CREATININE 2160-0 1.58 mg/dL L=0.67 H=1.17 SODIUM SERUM 2951-2 136 mmol/L L=136 H=145 POTASSIUM SERUM 2823-3 4.6 mmol/L L=3.4 H=5 .2 CHLORIDE SERUM 2075-0 97 mmol/L L=96 H=110 CARBON DIOXIDE (CO2) 2028-9 26 mmol/L L=22 H=34 ANION GAP 02319-0 13.5 mmol/L CALCIUM SERUM 55369-4 9.2 mg/dL L=8.2 H=10. 2 BILIRUBIN TOTAL 1975-2 0.9 mg/dL L=0.0 H=1 .3 ALK. PHOS. 6768-6 104 U/L L=46 H=116 SGOT (AST) 1920-8 25 U/L L=15 H=37 SGPT (ALT) 1742-6 45 U/L L=12 H=78 TOTAL PROTEIN 2885-2 8.1 gm/dL L=6.0 H=8.0 ALBUMIN 1751-7 4.4 gm/dL L=3.4 H=5.0 AGE 71 years eGFR (non-Afr.Amer.) 05047-7 44 mL/min eGFR (Afr-Tajik) 33179-6 53 mL/min GLUCOSE FINGER/HEEL CAPILLAR Y - Collect Date/Time: 12/22/2021 12:05 Test Name Code Test Result Test Units Test Ref Rang e GLUCOSE CAP 236 mg/dL L=70 H=116 GLUCOSE FINGER/HEEL CAPILLAR Y - Collect Date/Time: 12/22/2021 08:25 Test Name Code Test Result Test Units Test Ref Rang e GLUCOSE CAP 244 mg/dL L=70 H=116 CBC W/ DIFFERENTIAL* - Colle ct Date/Time: 12/21/2021 18:30 Test Name Code Test Result Test Units Test Ref Rang e WBC 6690-2 13.75 th/cmm L=5.00 H=10.00 NEUT % 82.3 % L=40.0 H=80.0 LYMPH % 9.5 % L=10.0 H=50.0 MONO % 63398-8 4.7 % L=2.0 H=12.0 EOS % 2.4 % L=0.0 H=8.0 BASO % 0.4 % L=0.0 H=3.0 IG % 2514-8 0.7 % L=0.0 H=1.1 NRBC % 32550-6 0.0 % L=0.0 H=0.0 NEUT abs count 751-8 11.3 th/cmm L=1.6 H=8. 4 LYMPH abs count 731-0 1.3 th/cmm L=1.5 H=4 .0 MONO abs count 742-7 0.7 th/cmm L=0.2 H=1. 0 EOS abs count 711-2 0.3 th/cmm L=0.0 H=0.5 BASO abs count 704-7 0.1 th/cmm L=0.0 H=0. 2 IG abs count 60268-0 0.1 th/cmm L=0.0 H=0.1 NRBC abs count 53940-2 0.0 mil/cmm L=0.0 H=0. 0 RBC 789-8 5.47 mil/cmm L=4.30 H=6.20 HEMOGLOBIN 718-7 16.1 gm/dL L=13.0 H=17.0 HEMATOCRIT 4544-3 49 % L=45 H=52 MCV 787-2 90 fL L=82 H=92 MCH 785-6 29.4 pg L=27.0 H=31.0 MCHC 786-4 32.7 % L=32.0 H=36.0 RDW-SD 788-0 46.7 fL L=39.0 H=49.0 PLATELET COUNT 777-3 183 th/cmm L=150 H=45 0 DESTINEY COVID FLU RSV GENEXPE RT - Collect Date/Time: 12/21/2021 20:12 Test Name Code Test Result Test Units Test Ref Rang e COVID 76769-3 NEGATIVE N/A Normal: Negati ve INFLUENZA A DNA 00138-7 NEGATIVE N/A Normal: N egative INFLUENZA B DNA 88660-2 NEGATIVE N/A Normal: N egative RSV DNA 10967-7 NEGATIVE N/A Normal: Negati ve Active Medications Medications Administered During Visit Medication Dose Units Frequency Route Date/Time of Last Dose ACETAMINOPHEN INJ IVPB: 1000MG/100ML 1000 MG X1 12/21/2021 18:5 0 CeFAZolin IVPB FROZEN PREMIX : 2GM/100ML 2 GM Q8H 12/21/2021 18:5 0 ASCORBIC ACID TABLET: 500MG 500 MG DAILY PO 12/22/2021 08:26 CeFAZolin IVPB FROZEN PREMIX : 2GM/100ML 2 GM Q8H 12/22/2021 10:2 1 INSULIN MDV REGULAR: 1000UNITS/10ML 2 Unit(s) PRN SUBQ 12/22/2021 12 :50 Encounters Encounter Diagnosis Diagnosis Code Start Date Dislocation of metacarpophal angeal joint of other finger, initial encounter C11065B 12/22/2021 Social History Smoking Status Code Start Date End Date Former smoker [id number] 10/24/1989 Patient Decision Aids Unknown or Not Available. Discharge Instructions You were admitted to [facility] on 12/22/2021 00:17 with a principal diagnosis of Dislocation of metacarpophalangeal joint of other finger, initial encounter You had the following procedures done:Reposition Right Finger Phalanx with External Fixation Device, Open ApproachRobotic Assisted Procedure of Lower Extremity, Open ApproachAnesthesia, Open/Surg Arthroscopic/Endoscopic Proc, Distal Radius/Distal Ulna/Wrist/Hand; NOS You had the following tests done:GLUCOSE FINGER/HEEL CAPILLARYGLUCOSE FINGER/HEEL CAPILLARYCOPLEY COVID FLU RSV GENEXPERTCBC W/ DIFFERENTIAL*COMPREHENSIVE METABOLIC PANEL (CMP) You were discharged from [facility] on 12/22/2021 15:55 Should you have any questions prior to discharge, please contact a member of your healthcare team. If you have left the hospital and have any questions, please contact your primary care physician. Chief Complaint and Reason For Visit Chief Complaint Date of Onset LEFT OPEN THUMB MCP DISLOCATION 12/23/19 22 Function Status Unknown or Not Available. Plan of Care Unknown or Not Available. Referral/Transition of Care Unknown or Not Available.
--- OUTSIDE RECORDS SUMMARY | 2023-06-24 13:02 | XMS_ITS | CCD ---
Author Name Unknown Address [address] [place] [address] [phone] Organization Unknown Address [address] [place] [address] [phone] Care Team Providers Care Butter Liquefier Name Role Phone JENNA BOB Attending Physician [phone] Vital Signs Vital Sign Value Unit Date/Time Recent/Initial ? BP Systolic 112 mmHg 12/30/2021 16:30 Initial VS BP Diastolic 54 mmHg 12/30/2021 16:30 Initia l VS Respiratory Rate 10 bpm 12/30/2021 16:30 In itial VS Heart Rate 69 bpm 12/30/2021 16:30 Initial VS O2 % BldC Oximetry 95 % 12/30/2021 16:30 Initial VS Body Temperature 36.3 degrees 12/30/2021 16:30 In itial VS Allergies Allergy Code Allergy Type Reaction Status No Known Drug Allergies 0 No known drug allergies Active Procedures Procedure Code Procedure Type Date Repair, Collateral Ligament, Metacarpophalangeal/Interphalangeal Joint 58325 CPT 12/30/2021 Open Treatment, Metacarpopha langeal Dislocation, Single, w/wo Int Fixation 48100 CPT 12/30/2021 Debridement, Open Fracture/D islocation; Skin, Subcutaneous Tissue, Muscle Fascia, Muscle, And Bone 02327 CPT 12/30/2021 Anesthesia, Nerves/Muscles/T endons/Fascia & Bursae, Lower Arm/Hand 66052 CPT 12/30/2021 History of Immunizations Immunization Code Date Tdap 115 12/26/2022 Problems Unknown or Not Available. Results GLUCOSE FINGER/HEEL CAPILLAR Y - Collect Date/Time: 12/30/2021 15:59 Test Name Code Test Result Test Units Test Ref Rang e GLUCOSE CAP 175 mg/dL L=70 H=116 GLUCOSE FINGER/HEEL CAPILLAR Y - Collect Date/Time: 12/30/2021 12:09 Test Name Code Test Result Test Units Test Ref Rang e GLUCOSE CAP 174 mg/dL L=70 H=116 Active Medications Medications Administered During Visit Medication Dose Units Frequency Route Date/Time of Last Dose ACETAMINOPHEN TABLET: 325MG 975 MG X1 PO 12/30/2021 12:08 CELECOXIB CAPSULE: 100MG 200 MG X1 PO 12/30/2021 12:08 LACTATED RINGERS 1000ML 1000 ML X1 12/30/2021 12:18 MIDAZOLAM INJ SDV: 2MG/2ML 2 MG X1 IVP 12/30/2021 12:56 CeFAZolin IVPB FROZEN PREMIX : 2GM/100ML 2 GM X1 12/30/2021 13:1 5 Encounters Encounter Diagnosis Diagnosis Code Start Date Dislocation of metacarpophal angeal joint of left thumb, initial encounter [id number] 12/30/2021 Social History Smoking Status Code Start Date End Date Former smoker [id number] 10/24/1989 Patient Decision Aids Unknown or Not Available. Discharge Instructions You were admitted to [facility] on 12/30/2021 11:00 with a principal diagnosis of Dislocation of metacarpophalangeal joint of left thumb, initial encounter You had the following procedures done:Repair, Collateral Ligament, Metacarpophalangeal/Interphalangeal JointOpen Treatment, Metacarpophalangeal Dislocation, Single, w/wo Int FixationDebridement, Open Fracture/Dislocation; Skin, Subcutaneous Tissue, Muscle Fascia, Muscle, And BoneAnesthesia, Nerves/Muscles/Tendons/Fascia & Bursae, Lower Arm/Hand You had the following tests done:GLUCOSE FINGER/HEEL CAPILLARYGLUCOSE FINGER/HEEL CAPILLARY You were discharged from [facility] on 12/30/2021 17:52 Should you have any questions prior to [...]
--- OUTSIDE RECORDS SUMMARY | 2023-06-24 13:02 | XMS_ITS | CCD ---
Author Name Unknown Address [address] [place] [address] [phone] Organization Unknown Address [address] [place] [address] [phone] Care Team Providers Care Memory Care Director Name Role Phone EJANNE ALDRIDGE Attending Physician [phone] Vital Signs Unknown or Not Available. Allergies Allergy Code Allergy Type Reaction Status No Known Drug Allergies 0 No known drug allergies Active Procedures Unknown or Not Available. History of Immunizations Immunization Code Date Tdap 115 12/26/2022 Problems Unknown or Not Available. Results Unknown or Not Available. Active Medications Medication Code Dose Units Frequency Route Modificatio n Start Date/Time Finasteride 5MG Oral Tablet 762011 1 TABLET DAILY ORAL 05/15/20 23:47 Prescription Detail TAKE 1 TABLET ORAL DAILY Medications Administered During Visit Unknown or Not Available. Encounters Encounter Diagnosis Diagnosis Code Start Date Encounter for other specified aftercare Z5189 12/23/2021 Social History Smoking Status Code Start Date End Date Former smoker [id number] 10/24/1989 Patient Decision Aids Unknown or Not Available. Discharge Instructions You were admitted to on 12/23/2021 08:23 with a principal diagnosis of Encounter for other specified aftercare You were discharged from on 12/23/2021 14:50 Should you have any questions prior to [...]
--- OUTSIDE RECORDS SUMMARY | 2023-06-24 13:02 | XMS_ITS | CCD ---
Author Name Unknown Address [address] [place] [address] [phone] Organization Unknown Address [address] [place] [address] [phone] Care Team Providers Care Sheet Metal Duct Installer Helper Name Role Phone JENNA BOB Attending Physician [phone] JENNA BOB Rounding (Secondary) Physic salvador [phone] Vital Signs Unknown or Not Available. Allergies Allergy Code Allergy Type Reaction Status No Known Drug Allergies 0 No known drug allergies Active Procedures Unknown or Not Available. History of Immunizations Immunization Code Date Tdap 115 12/26/2022 Problems Unknown or Not Available. Results Unknown or Not Available. Active Medications Medication Code Dose Units Frequency Route Modificatio n Start Date/Time Finasteride 5MG Oral Tablet 075376 1 TABLET DAILY ORAL 05/15/20 23 23:47 Prescription Detail TAKE 1 TABLET ORAL DAILY Medications Administered During Visit Unknown or Not Available. Encounters Encounter Diagnosis Diagnosis Code Start Date Traumatic dislocation of metacarpophalangeal she nt of thumb 041041486 12/24/2021 Social History Smoking Status Code Start Date End Date Former smoker 2402664 10/24/1989 Patient Decision Aids Unknown or Not Available. Discharge Instructions You were admitted to [facility] on 12/24/2021 09:56 with a principal diagnosis of Dislocation of metacarpophalangeal joint of left thumb, initial encounter You were discharged from [facility] on 12/24/2021 00:00 Should you have any questions prior [...]
--- OUTSIDE RECORDS SUMMARY | 2023-06-24 13:03 | XMS_ITS | CCD ---
Author Name Unknown Address [address] [place] [address] [phone] Organization Unknown Address [address] [place] [address] [phone] Care Team Providers Care Condenser Operator Name Role Phone MIN OCONNOR MD Attending Physician [phone] LISBET LU, COLIN Roca Er Physician 3 [phone] Vital Signs Unknown or Not Available. Allergies Allergy Code Allergy Type Reaction Status No Known Drug Allergies 0 No known drug allergies Active Procedures Unknown or Not Available. History of Immunizations Immunization Code Date Tdap 115 12/26/2022 Problems Problem Code Start Date Resolved Date Status Diabetes 2 61935225 12/21/2021 Resolved History of aortic valve replacement 9825917144036 12/22/2021 Resolved Coronary arteriosclerosis 36151283 12/22/2021 Resolved Diabetes 2 57844889 12/22/2021 Resolved Gastroesophageal reflux 465881621 12/22/2021 R esolved Results Unknown or Not Available. Active Medications Medication Code Dose Units Frequency Route Modificatio n Start Date/Time Finasteride 5MG Oral Tablet 957034 1 TABLET DAILY ORAL 05/15/20 23 23:47 Prescription Detail TAKE 1 TABLET ORAL DAILY Medications Administered During Visit Unknown or Not Available. Encounters Encounter Diagnosis Diagnosis Code Start Date Lumbago with sciatica, right side M5441 04/14/2021 Social History Smoking Status Code Start Date End Date Former smoker [id number] 10/24/1989 Patient Decision Aids Unknown or Not Available. Discharge Instructions You were admitted to [facility] on 04/14/2021 09:48 with a principal diagnosis of Lumbago with sciatica, right side You were discharged from [facility] on 04/14/2021 10:52 Should you have any questions prior to discharge, please contact a member of your healthcare team. If you have left the hospital and have any questions, please contact your primary care physician. Chief Complaint and Reason For Visit Chief Complaint Date of Onset BACK PAIN Function Status Unknown or Not Available. Plan of Care Unknown or Not Available. Referral/Transition of Care Unknown or Not Available.
--- OUTSIDE RECORDS SUMMARY | 2023-06-24 13:03 | XMS_ITS | CCD ---
Author Name Unknown Address [address] [place] [address] [phone] Organization Unknown Address [address] [place] [address] [phone] Care Team Providers Care Flexographic Press Helper Name Role Phone JEANNE ALDRIDGE Attending Physician [phone] Vital Signs Unknown or Not Available. Allergies Allergy Code Allergy Type Reaction Status No Known Drug Allergies 0 No known drug allergies Active Procedures Unknown or Not Available. History of Immunizations Immunization Code Date Tdap 115 12/26/2022 Problems Problem Code Start Date Resolved Date Status Diabetes 2 [id number] 12/21/2021 Resolved History of aortic valve replacement [id number] 12/22/2021 Resolved Coronary arteriosclerosis 35692098 12/22/2021 Resolved Diabetes 2 25907065 12/22/2021 Resolved Gastroesophageal reflux 164762942 12/22/2021 R esolved Results Unknown or Not Available. Active Medications Medication Code Dose Units Frequency Route Modificatio n Start Date/Time Finasteride 5MG Oral Tablet 993356 1 TABLET DAILY ORAL 05/15/20 23:47 Prescription Detail TAKE 1 TABLET ORAL DAILY Medications Administered During Visit Unknown or Not Available. Encounters Encounter Diagnosis Diagnosis Code Start Date Encounter for other specified aftercare [id number] 09/30/2021 Social History Smoking Status Code Start Date End Date Former smoker [id number] 10/24/1989 Patient Decision Aids Unknown or Not Available. Discharge Instructions You were admitted to [facility] on 09/30/2021 11:36 with a principal diagnosis of Encounter for other specified aftercare You were discharged from [facility] on 09/30/2021 16:18 Should you have any questions prior to [...]
--- OUTSIDE RECORDS SUMMARY | 2023-06-24 13:03 | XMS_ITS | CCD ---
Author Name Unknown Address [address] [place] [address] [phone] Organization Unknown Address [address] [place] [address] [phone] Care Team Providers Care Hvac Field Service Technician Name Role Phone JEANNE ALDRIDGE Attending Physician [phone] Vital Signs Unknown or Not Available. Allergies Allergy Code Allergy Type Reaction Status No Known Drug Allergies 0 No known drug allergies Active Procedures Unknown or Not Available. History of Immunizations Immunization Code Date Tdap 115 12/26/2022 Problems Problem Code Start Date Resolved Date Status Diabetes 2 69767586 12/21/2021 Resolved History of aortic valve replacement 8087914183153 12/22/2021 Resolved Coronary arteriosclerosis 65716677 12/22/2021 Resolved Diabetes 2 20595877 12/22/2021 Resolved Gastroesophageal reflux 363113195 12/22/2021 R esolved Results Unknown or Not Available. Active Medications Medication Code Dose Units Frequency Route Modificatio n Start Date/Time Finasteride 5MG Oral Tablet 176884 1 TABLET DAILY ORAL 05/15/20 23 23:47 Prescription Detail TAKE 1 TABLET ORAL DAILY Medications Administered During Visit Unknown or Not Available. Encounters Encounter Diagnosis Diagnosis Code Start Date Encounter for other specified aftercare [id number] 08/05/2021 Social History Smoking Status Code Start Date End Date Former smoker [id number] 10/24/1989 Patient Decision Aids Unknown or Not Available. Discharge Instructions You were admitted to on 08/05/2021 09:05 with a principal diagnosis of Encounter for other specified aftercare You were discharged from on 08/05/2021 08:25 Should you have any questions prior to [...]
[2023-06-24 20:55] LABS: HGB 13.1 g/dL (13.5-17.5); MCH 28.5 pg (27.0-33.0); MCHC 32.8 % (32.0-36.0); MCV 87 fL (80-95); MPV 9.2 fL (8.0-11.0); Platelet Count 265 10^3/uL (130-400); RBC 4.59 10^6/uL (4.36-5.78); RDW 13.5 % (11.8-14.1); RDW-SD 43.1 fL; WBC 8.62 10^3/uL (4.4-10.8)
[2023-06-24 21:26] LABS: Anion Gap 10.6 mmol/L (3-11); BUN 28 mg/dL (7-18); CO2 25.4 mmol/L (21.0-32.0); CREATININE 1.4 mg/dL (0.70-1.30); Calcium 9.3 mg/dL (8.5-10.1); Chloride 101 mmol/L (98-107); Estimated GFR 54.07 (mL/min/1.73m2); Ferritin 367 ng/mL (26-388); Glucose 184 mg/dL (74-106); Potassium 4.7 mmol/L (3.5-5.1); Sodium 137 mmol/L (136-145)
== END 2023-06-24 12:56 | disposition home or self-care (01) ==
LOC: NCHCN 12:55
PROVIDERS: Visit Provider Nurse Practitioner Family
DX: D64.9 Anemia, unspecified (principal)
CPT/HCPCS: 80048; 85027; 82728

== ENCOUNTER 2023-09-21 13:46 | Outpatient (REF) | payer MEDICARE, SELFPAY ==
[2023-09-21 15:22] LABS: HCT 42.7 % (40.0-50.0); HGB 13.6 g/dL (13.5-17.5); MCH 27.1 pg (27.0-33.0); MCHC 31.9 % (32.0-36.0); MCV 85 fL (80-95); MPV 9.5 fL (8.0-11.0); Platelet Count 241 10^3/uL (130-400); RBC 5.02 10^6/uL (4.36-5.78); RDW 14.1 % (11.8-14.1); RDW-SD 43.5 fL; WBC 7.85 10^3/uL (4.4-10.8)
[2023-09-21 15:38] LABS: Hemoglobin A1C 7.4 % (<5.7)
[2023-09-21 15:47] LABS: BUN 14 mg/dL (7-18); CREATININE 1.1 mg/dL (0.70-1.30); Calcium 9.4 mg/dL (8.5-10.1); Chloride 105 mmol/L (98-107); Estimated GFR 71.77 (mL/min/1.73m2); Ferritin 198 ng/mL (26-388); Glucose 171 mg/dL (74-106); Potassium 4.1 mmol/L (3.5-5.1); Sodium 143 mmol/L (136-145)
[2023-09-21 22:27] LABS: PSA, Screening <0.1 ng/mL (<=6.5)
== END 2023-09-21 13:47 | disposition home or self-care (01) ==
LOC: NCHCN 13:46
PROVIDERS: Visit Provider Nurse Practitioner Family
DX: E11.9 Type 2 diabetes mellitus without complications (principal); D64.9 Anemia, unspecified; K92.1 Melena; Z12.5 Encounter for screening for malignant neoplasm of prostate
CPT/HCPCS: 80048; 84153; 85027; 82728; 83036

== ENCOUNTER 2023-11-24 17:48 | Outpatient (REF) | payer MEDICARE, SELFPAY ==
[2023-11-24 22:55] LABS: Microalb ug/mg Crea 29.9 ug/mg Cr
== END 2023-11-24 17:49 | disposition home or self-care (01) ==
LOC: NCHCN 17:48
PROVIDERS: Visit Provider Nurse Practitioner Family
DX: E11.9 Type 2 diabetes mellitus without complications (principal)
CPT/HCPCS: 82043; 82570

== ENCOUNTER 2024-04-05 19:02 | Outpatient (REF) | payer MEDICARE, SELFPAY ==
[2024-04-05 21:21] LABS: BUN 17 mg/dL (7-18); CREATININE 1.3 mg/dL (0.70-1.30); Chloride 105 mmol/L (98-107); Estimated GFR 58.73 (mL/min/1.73m2); Glucose 189 mg/dL (74-106); Potassium 4.3 mmol/L (3.5-5.1); Sodium 141 mmol/L (136-145)
[2024-04-06 18:40] LABS: PSA, Diagnostic <0.1 ng/mL (<=6.5)
== END 2024-04-05 19:03 | disposition home or self-care (01) ==
LOC: NCHCN 19:02
PROVIDERS: Urology; Visit Provider Nurse Practitioner Family
DX: C61 Malignant neoplasm of prostate (principal); E11.3293 Type 2 diabetes mellitus with mild nonproliferative diabetic retinopathy without macular edema, bilateral
CPT/HCPCS: 80048; 84153

== ENCOUNTER 2024-09-19 08:34 | Outpatient (REF) | payer MEDICARE, SELFPAY ==
[2024-09-19 14:34] LABS: HCT 45.6 % (40.0-50.0); HGB 14.7 g/dL (13.5-17.5); MCH 28.1 pg (27.0-33.0); MCHC 32.2 % (32.0-36.0); MCV 87 fL (80-95); MPV 9.9 fL (8.0-11.0); Platelet Count 217 10^3/uL (130-400); RBC 5.23 10^6/uL (4.36-5.78); RDW 13.8 % (11.8-14.1); RDW-SD 43.9 fL; WBC 7.39 10^3/uL (4.4-10.8)
[2024-09-19 14:59] LABS: ALT 39 U/L (16-63); AST 35 U/L (15-37); Albumin 3.8 g/dL (3.4-5.0); Alkaline Phosphatase 146 U/L (46-116); Anion Gap 7.5 mmol/L (3-11); BUN 15 mg/dL (7-18); Bilirubin, Total 0.43 mg/dL (0.2-1.0); CO2 29.5 mmol/L (21.0-32.0); CREATININE 1.3 mg/dL (0.70-1.30); Calcium 9.1 mg/dL (8.5-10.1); Calculated LDL 66 mg/dL (<100); Chloride 103 mmol/L (98-107); Cholesterol 121 mg/dL (<200); Estimated GFR 58.73 (mL/min/1.73m2); Glucose 241 mg/dL (74-106); HDL Cholesterol 41 mg/dL (40-60); Potassium 4.6 mmol/L (3.5-5.1); Sodium 140 mmol/L (136-145); Total Protein 7.7 g/dL (6.4-8.2); Triglyceride 74 mg/dL (<150)
[2024-09-19 17:14] LABS: Hemoglobin A1C 7.9 % (<5.7)
== END 2024-09-19 08:35 | disposition home or self-care (01) ==
LOC: NCHCN 08:34
PROVIDERS: PCP Nurse Practitioner Family; Visit Provider Nurse Practitioner Family
DX: E13.42 Other specified diabetes mellitus with diabetic polyneuropathy (principal)
CPT/HCPCS: 80053; 80061; 85027; 83036

== ENCOUNTER 2024-12-15 17:11 | Outpatient (REF) | payer MEDICARE, SELFPAY ==
[2024-12-15 22:01] LABS: PSA, Diagnostic <0.1 ng/mL (<=6.5)
== END 2024-12-15 17:12 | disposition home or self-care (01) ==
LOC: NCHCN 17:11
PROVIDERS: Radiology Radiation Oncology; PCP Nurse Practitioner Family; Visit Provider Nurse Practitioner Family
DX: C61 Malignant neoplasm of prostate (principal)
CPT/HCPCS: 84153

== ENCOUNTER 2025-06-25 11:09 | Outpatient (REF) | payer MEDICARE, SELFPAY ==
[2025-06-25 15:35] LABS: Microalb ug/mg Crea 79.2 ug/mg Cr
[2025-06-25 23:09] LABS: PSA, Diagnostic <0.1 ng/mL (<=6.5)
== END 2025-06-25 11:10 | disposition home or self-care (01) ==
LOC: NCHCN 11:09
PROVIDERS: Student in an Organized Health Care Education/Training Program; PCP Nurse Practitioner Family; Visit Provider Nurse Practitioner Family
DX: E13.42 Other specified diabetes mellitus with diabetic polyneuropathy (principal); C61 Malignant neoplasm of prostate
CPT/HCPCS: 82043; 82570; 84153